=== PATIENT | female | born 1990 | race African-American/Black ===

== ENCOUNTER 2017-08-15 19:42 | Observation (INO) | payer SELFPAY ==
[~2017-08-15] VITALS: Ht 162.6 cm; Wt 103.0 kg
[2017-08-15] MEDS ORDERED: PNV1TABL76 PO (20:24)
[2017-08-15] MEDS ORDERED: SODIUM CHLORIDE 0.9% 1,000 ML IV SCH (20:30)
[2017-08-15] MEDS: TERBUTALINE SULFATE 1MG/ML VIAL SUBCUT PRN ×3 (21:45→23:21)
[2017-08-15 21:55] LABS: CLARITY URINE CLEAR (CLEAR); COLOR URINE YELLOW (YELLOW); GLUCOSE URINE NEGATIVE (NEGATIVE); KETONES URINE NEGATIVE (NEGATIVE); LEUKOCYTE ESTERASE URINE NEGATIVE (NEGATIVE); NITRITE URINE NEGATIVE (NEGATIVE); OCCULT BLOOD URINE 1+ (NEGATIVE); PH URINE 6.5 (4.5-8.0); PROTEIN URINE NEGATIVE (NEGATIVE); SPECIFIC GRAVITY URINE 1.009 (1.005-1.030); UROBILINOGEN URINE 0.2 E.U./dL (0.2-1.0)
== END 2017-08-16 00:06 | disposition home or self-care (01) ==
LOC: L&D 19:42
PROVIDERS: ADMIT Specialist; ATTEND Specialist
DX: O26.893 Other specified pregnancy related conditions, third trimester (principal); R10.30 Lower abdominal pain, unspecified; Z3A.28 28 weeks gestation of pregnancy
CPT/HCPCS: 81001; 82731; 96360; 96361; 96372; 99281; G0378; J3105; J7030